=== PATIENT | male | born 1990 ===

== ENCOUNTER 2019-10-03 20:29 | Emergency (ER) | payer OTHER ==
[~2019-10-03] VITALS: Ht 180.3 cm; Wt 66.0 kg
[2019-10-03 20:33] VITALS: BP 122/70
--- NOTE | 2019-10-03 20:46 | NUR ---
PT STATES HE WAS EXPOSED TO + COVID, STARTED EXPERIENCING MILD SYMPTOMS SUCH DRY COUGH AND SLIGHT FEVER. NO SOB OR CP. PT WANTS TO BE TESTED, RN EDUCATED ABOUT TESTING AND SYMPTOMS.
--- NOTE | 2019-10-03 21:04 | NUR ---
Patient/Caregiver given discharge instructions and they have confirmed that they understand the instructions. Patient ambulatory with steady gait.
== END 2019-10-03 21:14 | disposition home or self-care (01) ==
LOC: ED 21:05
DX: B34.9 Viral infection, unspecified (principal)
CPT/HCPCS: 99282

== ENCOUNTER 2019-11-04 15:26 | Emergency (ER) | payer OTHER ==
[~2019-11-04] VITALS: Ht 180.3 cm; Wt 68.3 kg
[2019-11-04 15:52] VITALS: BP 105/56
== END 2019-11-04 16:20 | disposition home or self-care (01) ==
LOC: ED 16:00
DX: Z00.00 Encounter for general adult medical examination without abnormal findings (principal)
CPT/HCPCS: 99281